=== PATIENT | female | born 2005 | race Caucasian/White ===

== ENCOUNTER 2025-10-12 14:09 | Emergency (ER) | payer OTHER, SELFPAY ==
[2025-10-12 14:09] VITALS: BMI 29.4
[2025-10-12 14:11] VITALS: BP 148/96
--- NOTE | 2025-10-12 16:58 | ED.GENMED ---
History of Present Illness
General
Chief Complaint: Headache
Source: patient
Time Seen by Provider: 10/12/25 16:34
History of Present Illness
History of Present Illness:
20-year-old female with past medical history of headaches, anxiety/PTSD/depression/autism presenting to the emergency department for evaluation of a right sided headache that initially started as right ocular pain, after about 10 minutes or so the
pain started to isolate to the right frontotemporal region and has been a constant dull throbbing sensation since accompanied with blurred vision, lightheadedness, nausea and photophobia. Patient tried to go to her eye doctor but they are closed
today and contacted her primary care provider who recommended she come to the ER for further evaluation. She denies any fevers or infectious symptoms, current ocular pain, current blurred or double vision, focal weakness or numbness or any other
concerns. She does state that this headache is a little bit different than her normal as typically her headaches will improve with sleep but this 1 has not. She notes that she has not taken any Tylenol or any anti-inflammatories as these medicines
usually cause her to feel constipated.
Past History
Past History
ED Past Medical History: Psychiatric and Other (Chronic headaches)
ED Past Surgical History: Orthopedic and Tonsilectomy
Social History
Tobacco: Non-smoker
Alcohol: None
Drug: Marijuana
Personal: Partner
Living: with family
Employment: Employed
Review of Systems
Review of Systems
All Other Systems: ROS reviewed and negative except as documented in HPI and ROS
Phy Exam
Physical Exam
Physical Exam:
GENERAL: Alert , in no apparent distress
HEAD: Normocephalic atraumatic
EYE: pupils equal and reactive, pupils 4mm bilat, EOMI, normal conjunctiva, no cloudiness/haziness to the cornea/pupil, no conjunctival injection/erythema, no discharge
IOP left eye - 16
NECK: Supple, no significant adenopathy. FROM, non-meningeal
ENT: mmm.
NEUROLOGICAL: Alert and oriented, no focal neuro deficits, ambulates with steady gait, no dysmetria
SKIN: Warm and dry, skin intact.
MUSCULOSKELETAL: No edema, well perfused.
PSYCH: Normal and appropriate interaction.
Scores
Heart Failure Risk
Heart Failure Risk Score: Not Applicable
Heart Score for Chest Pain Patients
STEMI patient?: Not applicable
Withdrawal Assessment of Alcohol
Withdrawal Assessment Completed?: Not applicable
Course
Orders/Labs/Results
Orders:
Orders
10/12/25 16:57
CT Head W/o Iv Contrast Urgent
Comment:
Reason For Exam: right sided headache x 48 hrs
Diphenhydramine [Benadryl] 25 mg IV NOW STA
Docusate Sodium [Colace] 100 mg PO NOW STA
Ketorolac [Toradol] 30 mg IV NOW STA
Metoclopramide [Reglan] 10 mg IV NOW STA
Test Result ONCE
10/12/25 17:09
Basic Metabolic Panel Urgent
Complete Blood Count/With Diff Urgent
HCG, Serum Qualitative Screen Urgent
Abnormal Lab Results
10/12/25
17:09
Monocytes % 10.9 H %
(1.7-9.3)
Chloride 109 H mmol/L
(98-107)
10/12/25 17:09
10/12/25 17:09
Vital Signs
Initial and Last Documented VS:
Initial Vital Signs
Temp Pulse Resp BP Pulse Ox
98.2 F 91 16 148/96 97
10/12/25 14:11 10/12/25 14:11 10/12/25 14:11 10/12/25 14:11 10/12/25 14:11
Last Documented Vital Signs
Temp Pulse Resp BP Pulse Ox
98.2 F 84 16 125/74 100
10/12/25 14:11 10/12/25 19:51 10/12/25 19:51 10/12/25 19:51 10/12/25 19:51
MDM/Problems Addressed
Differential Diagnosis Includes:
Ocular Migraine
Tension headache
SAH/ICH
Meningitis
Glaucoma
Keratitis/Iritis
GCA
[place] Palsy
MDM/Problems Addressed:
20-year-old female presenting to the ER for evaluation of a right sided headache, symptoms ongoing for the last 48 hours but has not taken anything for the headache due to reported side effects from these medications. No focal neurologic findings,
she does not appear to be in any acute distress. No risk factors for subarachnoid hemorrhage or intracranial bleeding but given the reports of the severity will obtain CT scan to further evaluate. Will treat with migraine cocktail. Disposition
pending.
*Radiology
Radiology exam reviewed: radiology read reviewed
*Pulse Oximetry
SaO2: 97
Oxygen Mode of Delivery: Room air
Patient hypoxic: no
*Critical Care Note
Total Time (30-74mins, 75-104mins- exclusive of procedures): Not Applicable
Patient Management
Escalation/DeEscalation of care consider admission/obs:
CT without any acute abnormalities. Patient does report improvement of symptoms albeit still mildly present. I did offer additional migraine relief however patient declined stating she would just like to be discharged home. Aware of return
precautions to the ER but otherwise stable for discharge.
ED Attending Note
-
Portions of this chart may have been created with voice recognition software.� Occasional wrong word or��sound alike� substitutions may have occurred due to the inherent limitations of voice recognition software.
Discharge Plan
Departure
Patient Disposition: Home (Routine Discharge)
Date of Disposition: 10/12/25
Time of Disposition: 19:50
Patient with high blood pressure during this ER visit?: No
Discharge Problem:
Headache
Instructions: Migraines (DC)
Referrals:
Ghazala Velazquez DO [Family Provider, Family Practice]
Interventions
Interventions:
*Risk Screen - Suicide Last Done: 10/12/25 14:11
*General Assessment Last Done: 10/12/25 19:51
*Neglect/Abuse Screening Last Done: 10/12/25 14:11
*ED- Fall Risk Assessment Last Done: 10/12/25 17:27
*Nursing Disposition Last Done: 10/12/25 19:51
ED- Neurological Assessment Last Done: 10/12/25 17:27
Discharge Date and Time
Discharge Date/Time: 10/12/25 19:51
Print Language: SAMI
[2025-10-12] MEDS: BENADRYL 25 MG IV (17:06)
[2025-10-12] MEDS: COLACE 100 MG PO (17:06)
[2025-10-12] MEDS: REGLAN 10 MG IV (17:06)
[2025-10-12] MEDS: TORADOL 30 MG IV (17:06)
[2025-10-12 17:28] VITALS: BP 132/78
[2025-10-12 17:36] LABS: Hematocrit 39.7 % (37.0-47.0); Hemoglobin 13.7 g/dL (12.0-16.0); Mean Corp Hgb Conc. 34.5 g/dL (33.0-37.0); Mean Corpuscular Volume 85.9 fL (81.0-99.0); Nucleated Red Blood Cells % 0 %; Platelet Count 220 10^3/uL (130-400); Red Cell Dist. Width 12.1 % (11.5-14.5)
[2025-10-12 17:40] LABS: HCG, Serum Qualitative Screen Negative
[2025-10-12 17:55] LABS: Blood Urea Nitrogen 10 mg/dl (7-17); Calcium 9.5 mg/dl (8.4-10.2); Carbon Dioxide 25 mmol/L (22-30); Estimated Creatinine Clearance > 125 ml/min; Glucose 79 mg/dl (70-99); eGFR > 60.00
[2025-10-12 19:12] VITALS: BP 116/68
[2025-10-12 19:32] LABS: Chloride 109 mmol/L (98-107); Sodium 143 mmol/L (135-145)
[2025-10-12 19:51] VITALS: BP 125/74
== END 2025-10-12 19:51 | disposition home or self-care (01) ==
LOC: EMR 14:09
PROVIDERS: Physician Assistant Medical; EMERGENCY PHYSICIAN Emergency Medicine; FAMILY PHYSICIAN Family Medicine Adolescent Medicine
DX: R51.9 Headache, unspecified (principal); F84.0 Autistic disorder; F41.9 Anxiety disorder, unspecified; F32.A Depression, unspecified; F43.10 Post-traumatic stress disorder, unspecified
CPT/HCPCS: 99284; 96374; 96375 ×2; 70450; 80048; 84703; 85025